=== PATIENT | female | born 1950 ===

== ENCOUNTER 2018-08-03 12:21 | Emergency (ER) | payer OTHER ==
[~2018-08-03] VITALS: Ht 165.1 cm; Wt 70.3 kg
[2018-08-03] MEDS ORDERED: LABETALOL HCL300 MG (12:36)
[2018-08-03] MEDS ORDERED: IRBESARTAN (12:36)
[2018-08-03] MEDS ORDERED: AMLODIPINE BESYL5 MG (12:37)
[2018-08-03] MEDS ORDERED: FENOFIBRATE50 MG (12:37)
[2018-08-03] MEDS ORDERED: LASIX20 MG (12:38)
[2018-08-03] MEDS ORDERED: BITREX (12:38)
== END 2018-08-03 15:22 | disposition home or self-care (01) ==
LOC: ER 12:21
DX: S01.82XA Laceration with foreign body of other part of head, initial encounter (principal); S52.121A Displaced fracture of head of right radius, initial encounter for closed fracture; W45.8XXA Other foreign body or object entering through skin, initial encounter; Y93.89 Activity, other specified; Y92.480 Sidewalk as the place of occurrence of the external cause; Y99.8 Other external cause status

== ENCOUNTER 2021-05-25 08:03 | Outpatient (CLI) | payer OTHER ==
[~2021-05-25 08:03] MED LIST: AMLODIPINE BESYL5 MG; BITREX; FENOFIBRATE50 MG; IRBESARTAN; LABETALOL HCL300 MG; LASIX20 MG
== END 2021-05-25 08:09 | disposition home or self-care (01) ==
LOC: TOM 08:03
PROVIDERS: ATTEND Internal Medicine
DX: K63.5 Polyp of colon (principal); K66.0 Peritoneal adhesions (postprocedural) (postinfection); K56.690 Other partial intestinal obstruction